=== PATIENT | male | born 1990 | race African-American/Black ===

== ENCOUNTER 2023-02-10 18:20 | Emergency (ER) | payer MEDICAID, SELFPAY ==
--- NOTE | 2023-02-10 19:24 | ED.GENADULT ---
HPI - General Adult General Chief complaint: Urogenital-Male Stated complaint: std screening Time Seen by Provider: 02/10/23 19:43 Source: patient Mode of arrival: ambulatory Limitations: no limitations and other (Patient is deaf so data storage specialist used) History of Present Illness HPI narrative: 33-year-old male presents with dysuria, discomfort to penile head times a few days status post new sexual partner who he was with for 2 weeks. Reports that he is afraid he might have a sexually transmitted disease however unsure if he came in contact with 1. He had chlamydia years ago however was treated for it. Patient denies back pain, abdominal pain, nausea, vomiting, headache, vision changes, chest pain, shortness of breath, penile discharge. Like prophylactic treatment for STDs. Related Data Previous Rx's Medication Instructions Recorded doxycycline hyclate 100 mg capsule 100 mg PO BID 7 days #14 caps 02/10/23 metronidazole 500 mg tablet 500 mg PO BID 7 days #14 tabs 02/10/23 Allergies Allergy/AdvReac Type Severity Reaction Status Date / Time No Known Allergies Allergy Unverified 08/10/20 16:10 Review of Systems Review of Systems: Constitutional : No Weight loss, No Fever, No Chills, No Fatigue, No Malaise ENT/Mouth : No sore throat, No Rhinorrhea Eyes: No Eye Pain, No Swelling, No Redness Cardiovascular : No Chest Pain, No SOB, No Dyspnea on Exertion, No Orthopnea, No Edema, No Palpitations Respiratory : No Cough, No Sputum, No Wheezing Gastrointestinal : No Nausea, No Vomiting, No Diarrhea, No Constipation, No abdominal Pain, No Hematochezia, No Melena Genitourinary : + Dysuria, No Urinary Frequency, No Hematuria, Musculoskeletal : No joint pain, No Myalgias, No Joint Swelling Skin : No Skin Lesions, No rash Neuro : No Weakness, No Numbness, No Dizziness, No Headache Psych : No Anxiety/Panic, No Depression All other systems reviewed and are negative Yes all other systems are reviewed and are negative [facility] Past Medical History Attestation statement: The following information was validated with the patient. Source: old records reviewed and nursing notes reviewed Social History Social History Advance Directives: No Advance Directives Information Provided: No Physical Exam ED Vital Signs: Vital Signs - 24 hr 02/10/23 19:29 Temperature 98.4 F Pulse Rate 74 Respiratory Rate 16 Blood Pressure 128/69 Pulse Oximetry 99 Oxygen Delivery Method Room Air BMI result Body Mass Index 27.4 vss Appearance: Alert.? Oriented X3.? No acute distress.? Head: Normocephalic, atraumatic, no step-offs or deformities Eyes: Pupils equal, round and reactive to light.? CVS: Normal heart rate and rhythm.? Pulses normal.? Respiratory: No respiratory distress.? Breath sounds normal.? Abdomen: Soft and nontender.? Skin: Skin warm and dry.? Normal skin color.? Normal skin turgor.? Extremities: No lower extremity edema.? No calf ttp. 5/5 strength to bilateral upper and lower extremities Back: No midline tenderness, no C-spine tenderness, full range of motion, no CVA tenderness bilaterally Neuro: Oriented X 3.? No motor deficit.? No sensory deficit. CN 2-12 intact Sensitive exam with cerner analyst ZION Jolly. Erythema to head of penis. No discharge. No tenderness to palpation. Normal external genitalia. Course Reevaluation(s) Reevaluation #1: Urine obtained. Patient treated with ceftriaxone, doxycycline and metronidazole. Advised to obtain full panel STD test elsewhere. Will be called if results are positive. Or patient will come in to obtain results as he is deaf. Educated patient on diagnosis and treatment plan, answered all question, patient verbalizes understanding. At this time patient will be discharged home, advised to return with new or worsening symptoms. Educated on worrisome signs and symptoms and when to return. At this time I feel comfortable discharge home. Time: 19:38 Reevaluation #2: Patient was unsure of which pharmacy he wanted therefore written scripts were handed to patient. Medical Decision Making Medical Decision Making [facility] Narrative: 193 33-year-old male presents for evaluation of potential STD reporting dysuria and irritation to tip of penis Physical exam with slight erythema to penile head. No discharge Concerns for STD versus UTI. Unlikely torsion. No signs of pyelonephritis or obstructing uropathy Plan prophylactic treatment for STDs. UA. Patient agrees to prophylactic treatment for gonorrhea, chlamydia and trichomonas. 500mg IM ceftriaxone has been given here and scripts for doxycycline 100 mg po BID X 7 days and metronidazole 500 mg po BID X 7 days have been given to the patient. Educated on safe sex practices, full pannel STD testing and speaking to? partners on possible STD. Differential Diagnosis Differential Diagnoses: The differential diagnosis associated with the presentation includes Concerns for STD versus UTI. Unlikely torsion. No signs of pyelonephritis or obstructing uropathy Admission/Observation Consideration of admission/observation: Escalation of care including admission/observation considered Not indicated Core Measures AMI core measures followed: Yes Measure exclusions: not indicated Critical Care Time Critical Care Time Critical Care Time: No Discharge Plan Discharge Clinical Impression: Screen for STD (sexually transmitted disease) Patient Disposition: Home, Self-Care Additional Instructions: Take your medications as prescribed. If you were prescribed antibiotics today, it is important that you take your medication to their entirety, do not skip any doses, do not finish them early. Follow-up with your primary care provider this week. Return to the emergency department with new or worsening symptoms. Such as fevers, chills, chest pain, shortness of breath, nausea, vomiting, dizziness, headache, vision changes, lethargy In case of emergency call 911 You were treated here today with ceftriaxone, a medication that treats gonorrhea. I have sent to your pharmacy Metronidazole that covers trichomonas, and Doxycycline which covers for chlamydia. Please be reevaluated by a healthcare provider after completing your antibiotics. Do not stop them early, do not skip any doses. Until you are reevaluated by a health care provider please practice safe sex as disucussed. Please also have a conversation with your sexual partners.? I also advise you to obtain full panel STD testing to test for other STDs including HIV, Hepatitis B & C and syphilis with your PCP or a local clinic. Prescriptions: New doxycycline hyclate 100 mg capsule 100 mg PO BID 7 Days Qty: 14 0RF metronidazole 500 mg tablet 500 mg PO BID 7 Days Qty: 14 0RF Referrals: Physician,Unknown J [Primary Care Provider] - 2 days
[2023-02-10 19:29] VITALS: BP 128/69; PULSE 74; RESP 16; TEMP 36.9; O2SAT 99; BMI 27.4
[2023-02-10] MEDS: cefTRIAXone sodium 500 MG, Lidocaine HCl 1 % MPF 1 ML IM (20:30)
[2023-02-10] MEDS: metroNIDAZOLE 500 MG TABLET PO (20:31)
[2023-02-10] MEDS: Doxycycline Monohydrate 100 MG CAPSULE PO (20:31)
[2023-02-11 06:50] LABS: CT PCR NOT DETECTED (Not Detect.); NG PCR NOT DETECTED (Not Detect.)
== END 2023-02-10 20:59 | disposition home or self-care (01) ==
PROVIDERS: Physician Assistant; Emergency Provider Internal Medicine
DX: R30.0 Dysuria (principal); Z11.3 Encounter for screening for infections with a predominantly sexual mode of transmission; H91.3 Deaf nonspeaking, not elsewhere classified
CPT/HCPCS: 0353U; 96372; 99282; 99284; J0696

== ENCOUNTER 2023-03-30 07:55 | Emergency (ER) | payer MEDICAID, SELFPAY ==
[2023-03-30 08:00] VITALS: BP 124/76; PULSE 91; RESP 14; TEMP 36.6; O2SAT 98; BMI 27.4
--- NOTE | 2023-03-30 08:05 | ED_ITS ---
HPI - Male Genitourinary General Chief complaint: Urogenital-Male Stated complaint: STD test Time Seen by Provider: 03/30/23 08:04 Source: patient and old records reviewed Mode of arrival: ambulatory Limitations: no limitations History of Present Illness HPI Narrative: 33 yo deaf male presents to the ER for evaluation of a possible STI. He states he was seen here in January for concern for a possible STI where he was empirically treated but ultimately tested negative for infections. He states Since then he has had a rash around the tip of his penis. He reports a foul smell. He states it is red and sometimes itchy. He denies any painful lesions. He denies any urethral discharge. No dysuria. No fevers. No rashes on his palms or soles. He does not have any new sexual partners since he was last tested in January. Complaint: other ( Penile rash and redness with foul smell) Onset (ago): month(s) Duration: constant Location: penis Severity: moderate Quality: aching Relieving factors: none Exacerbating factors: none Associated symptoms: Reports denies other symptoms Related Data Previous Rx's Medication Instructions Recorded doxycycline hyclate 100 mg capsule 100 mg PO BID 7 days #14 caps 02/10/23 metronidazole 500 mg tablet 500 mg PO BID 7 days #14 tabs 02/10/23 clotrimazole 1 % topical cream 1 appl topical BID 2 weeks #45 03/30/23 grams Allergies Allergy/AdvReac Type Severity Reaction Status Date / Time No Known Allergies Allergy Verified 03/30/23 07:59 Review of Systems Review of Systems: Yes all other systems are reviewed and are negative [facility] Social History Social History Advance Directives: No Advance Directives Information Provided: Yes Physical Exam Vital Signs: Vital Signs: Last Vital Signs Temp 98 F 03/30/23 08:00 Pulse 91 03/30/23 08:00 Resp 14 03/30/23 08:00 BP 124/76 03/30/23 08:00 Pulse Ox 98 03/30/23 08:00 O2 Del Method Room Air 03/30/23 08:00 BMI result Body Mass Index 27.4 Appearance: Alert. Oriented X3. No acute distress. HEENT: normal inspection CVS: Normal heart rate and rhythm. Pulses normal. Respiratory: No respiratory distress. Abd: soft NT/ND, +BS : normal external inspection of the genitalia, no testicular swelling or tenderness. uncircumsized penis with erythema and irritation of the glans, small white thick discharge along the rim, no genital lesions Skin: Skin warm and dry. Normal skin color. Normal skin turgor. No rashes. Extremities: normal inspection x4, no joint swelling Neuro: Oriented X 3. No motor deficit. No sensory deficit. communicates via writing Medical Decision Making Medical Decision Making [facility] Narrative: 33-year-old male presents to the ER for evaluation of a rash on his genitals, here for the same on February 10. At that time he tested negative for gonorrhea and chlamydia, was empirically treated. He has no urethral discharge, complains of a red and foul-smelling discharge at the tip of his penis. His exam is consistent with balanitis and a fungal infection. Will treat with clotrimazole topically. We also discussed importance of hygiene. At this time his symptoms are not consistent with STI. We will hold off on repeated treatment. He has no new sexual partners. If his tested positive we will call him. His urinalysis is negative for infection. Stable for discharge home with topical antifungal. Differential Diagnosis Differential Diagnoses: The differential diagnosis associated with the presentation includes gonorrhea, chlamydia, balanitis, Trichomonas, UTI, genital herpes, folliculitis Lab Data [facility] Lab Attestation statement: I reviewed the patient's lab results. Labs: Lab Results 03/30/23 Range/Units 09:39 Urine Color Yellow Urine Appearance Clear Urine pH 5.5 (5.0-9.0) Ur Specific [place] 1.015 (1.005-1.025) Urine Protein Negative (Neg-Trace) mg/dL Urine Glucose (UA) Negative (Negative) mg/dL Urine Ketones Negative (Negative) mg/dL Urine Blood Negative (Negative) Urine Nitrite Negative (Negative) Ur Leukocyte Esterase Negative (Negative) External Record Review External record reviewed: Outpatient record and Prior outpatient labs Prescription Management I considered prescription management with: Antibiotic Critical Care Time Critical Care Time Critical Care Time: No Discharge Plan Discharge Clinical Impression: Balanitis Patient Disposition: Home, Self-Care Instructions: Balanitis (ED) Additional Instructions: Your urinalysis did not show any evidence of an acute urinary tract infection. Your exam is consistent with balanitis which is most commonly due to inflammati on of the glans and usually a fungal infection Treatment is a topical antifungal cream 2 times per day for 2 weeks It is also important to cleanse the area two times per day with an over the counter saline solution IF your STI testing comes back positive, we will call you. If you do not hear from us then it is negative Follow up with the local [facility] if you would like additional STI testing like HIV or syphilis If you develop new or worsening symptoms call 911 or come back to the ER for further evaluation. Prescriptions: New clotrimazole 1 % cream 1 appl topical BID 14 Days Qty: 45 1RF No Action doxycycline hyclate 100 mg capsule 100 mg PO BID 7 Days Qty: 14 0RF metronidazole 500 mg tablet 500 mg PO BID 7 Days Qty: 14 0RF
[2023-03-30 09:47] LABS: Appearance Urine Clear; Color Urine Yellow; Glucose Urine UA Negative (Negative); Leukocyte Esterase Urine Negative (Negative); Nitrite Urine Negative (Negative); PH 5.5 (5.0-9.0); Specific Gravity - Urine 1.015 (1.005-1.025); Urine Blood Negative (Negative); Urine Ketones Negative (Negative); Urine Protein Negative (Neg-Trace)
[2023-03-30 12:13] LABS: CT PCR NOT DETECTED (Not Detect.); NG PCR NOT DETECTED (Not Detect.)
== END 2023-03-30 10:05 | disposition home or self-care (01) ==
PROVIDERS: Physician Assistant; Emergency Provider Emergency Medicine
DX: N48.1 Balanitis (principal); Z79.899 Other long term (current) drug therapy
CPT/HCPCS: 0353U; 81003; 99283